=== PATIENT | female | born 1995 | race Two or more races ===

== ENCOUNTER 2017-11-06 21:49 | Emergency (ER) | payer BC ==
[~2017-11-06] VITALS: Ht 154.9 cm; Wt 74.8 kg
[2017-11-06 22:43] VITALS: BP 129/68
[2017-11-06 23:24] LABS: Basophils # (auto) 0 uL; Basophils % (auto) 0.2 % (0.0-2.0); Eosinophils # (auto) 0 uL; Eosinophils % (auto) 0.4 % (0.0-7.0); Lymphocytes # (auto) 0.5 uL; Lymphocytes % (auto) 3.7 % (10.0-50.0); Mean Corpuscular Hemoglobin 31.2 pg (28.0-32.0); Mean Corpuscular Hgb Conc. 34.1 g/dL (32.0-36.0); Mean Corpuscular Volume 91.5 fL (80.0-100.0); Monocytes # (auto) 0.7 uL; Monocytes % (auto) 5.5 % (0.0-12.0); Neutrophils # (auto) 10.9 uL; Neutrophils % (auto) 90.2 % (37.0-80.0); Platelet Count (auto) 226 10^3/uL (140-450); Red Blood Cells 5.14 10^6/uL (4.0-5.20); Red Cell Distribution Width 13.4 % (11.8-14.3); White Blood Cell 12.1 10^3/uL (4.4-10.8)
[2017-11-06 23:35] LABS: Potassium 4.3 mmol/L (3.5-5.1)
[2017-11-06 23:40] LABS: Albumin 4.2 g/dL (3.4-5.0); BUN/Creatinine Ratio 16.5
[2017-11-06 23:54] LABS: Bilirubin, Total 1.1 mg/dL (0.2-1.0); Total Protein 8.9 g/dL (6.4-8.2)
== END 2017-11-07 03:56 | disposition left against medical advice (07) ==
LOC: ER 22:44
DX: R11.2 Nausea with vomiting, unspecified (principal); R19.7 Diarrhea, unspecified; Z53.21 Procedure and treatment not carried out due to patient leaving prior to being seen by health care provider
CPT/HCPCS: 36415; 74176; 80053; 85025